=== PATIENT | female | born 1975 | race Asian ===

== ENCOUNTER 2025-08-29 05:36 | Inpatient (IN) | payer BC ==
[2025-08-29] MEDS ORDERED: Lidocaine 1% w/Epinephrine 1:200K 30 ML VIAL ONE (06:24)
[2025-08-29] MEDS ORDERED: PROPOFOL 40 ML ONE (06:30)
[2025-08-29] MEDS ORDERED: SUGAMMADEX SODIUM 200 MG/2 ML VIAL ONE (06:30)
[2025-08-29] MEDS ORDERED: Rocuronium Bromide 10 MG/ML (10ML VIAL) ONE (06:30)
[2025-08-29] MEDS ORDERED: Lidocaine 1% PF 5 ML VIAL ONE (06:30)
[2025-08-29] MEDS ORDERED: CEFAZOLIN 2 GM VIAL ONE (06:48)
[2025-08-29] MEDS ORDERED: PROPOFOL 20 ML ONE (07:42)
[2025-08-29] MEDS ORDERED: PHENYLEPHRINE-NS 100 MCG/ML 10 ML SYRINGE ONE (08:43)
[2025-08-29] MEDS: Ondansetron PF 4 MG/2 ML Vial IVP PRN (11:30)
[2025-08-29] MEDS: D5 1/2 NS 1,000 ML IV SCH (11:34)
[2025-08-29] MEDS: Calcium Carbonate 500 MG ChewTAB PO SCH (15:22)
[2025-08-29 15:47] LABS: Calcium 8.6 mg/dL (7.8-10.44)
[2025-08-29] MEDS: Calcitriol 0.25 MCG CAP PO SCH (21:06)
[2025-08-30 04:23] LABS: Calcium 11.0 mg/dL (7.8-10.44)
[2025-08-30 05:22] VITALS: BMI 31.1
[2025-08-30 16:02] LABS: Calcium 8.6 mg/dL (7.8-10.44)
[2025-08-30] MEDS: metFORMIN 500 MG TAB PO SCH (16:15)
[2025-08-31 03:39] LABS: Calcium 8.9 mg/dL (7.8-10.44)
[2025-08-31 09:56] VITALS: BP 136/92; TEMP 98.2
== END 2025-08-31 09:40 | disposition home or self-care (01) | DRG 627 ==
LOC: CSHSDC 05:36 → CSHICU 10:21
PROVIDERS: ADMIT Otolaryngology Plastic Surgery within the Head & Neck; ATTEND Otolaryngology Plastic Surgery within the Head & Neck
PROC: 0GTG0ZZ Resection of Left Thyroid Gland Lobe, Open Approach (ICD-10-PCS; principal; 2025-08-29)
PROC: 0GTH0ZZ Resection of Right Thyroid Gland Lobe, Open Approach (ICD-10-PCS; 2025-08-29)
DX: C73 Malignant neoplasm of thyroid gland (principal); E07.9 Disorder of thyroid, unspecified; J38.00 Paralysis of vocal cords and larynx, unspecified; E03.9 Hypothyroidism, unspecified; Z88.0 Allergy status to penicillin
CPT/HCPCS: 36415; 36416; 71045; 74220; 82310; 83970; 88307; 88311; 88331; 94640; 94760; J1100; J1815; J2250; J2270; J2405; J2704; J7042